=== PATIENT | female | born 1970 | race Caucasian/White ===

== ENCOUNTER → 2016-11-17 | Outpatient (CLI) | payer OTHER ==
[2016-11-17 15:16] LABS: BILIRUBIN,TOTAL 0.4 mg/dL (0.3-1.2); TOTAL PROTEIN 8.2 g/dL (6.1-8.0)
[2016-11-17 18:22] LABS: FREE T4 (FREE THYROXINE) 2.21 ng/dL (0.93-1.71)
[2016-11-18 04:58] LABS: FREE T3 6.89 PG/ML (2.77-5.27)
== END ==
LOC: LAB 14:41
PROVIDERS: ATTEND Nurse Practitioner Family
DX: R03.0 Elevated blood-pressure reading, without diagnosis of hypertension (principal); R00.0 Tachycardia, unspecified; R11.2 Nausea with vomiting, unspecified; Z86.39 Personal history of other endocrine, nutritional and metabolic disease
CPT/HCPCS: 36415; 80076; 84439; 84443; 84481

== ENCOUNTER → 2016-12-01 | Outpatient (CLI) | payer SELFPAY ==
[2016-12-01 14:09] LABS: BLOOD UREA NITROGEN 14 mg/dL (7-22); BUN/CREATININE RATIO 23.33 (6-20); CALCIUM 9.3 mg/dL (8.7-10.7); EST GLOMERULAR FILTRATION > 60 (>60 ml/min/1.73m(2)); SERUM ALBUMIN 4.2 g/dL (3.5-4.8)
== END ==
LOC: LAB 13:44
PROVIDERS: ATTEND Nurse Practitioner Family
DX: E05.90 Thyrotoxicosis, unspecified without thyrotoxic crisis or storm (principal)
CPT/HCPCS: 36415; 80053

== ENCOUNTER 2017-01-08 20:10 | Emergency (ER) | payer SELFPAY ==
[2017-01-08 20:16] VITALS: RESP 18; TEMP 96.9
[2017-01-08] MEDS ORDERED: NORMAL SALINE 10 ML SYRINGE FLUSH IVP PRN (20:31)
[2017-01-08] MEDS ORDERED: ONDANSETRON 4 MG/2 ML VIAL IVP ONE (20:31)
[2017-01-08] MEDS ORDERED: Sodium Chloride 0.9% 1,000 ML PRIMARY IV ONE (20:31)
[2017-01-08 20:49] LABS: BASOPHILS # (AUTO) 0.02 10*3/UL; BASOPHILS % (AUTO) 0.3 % (0-1); EOSINOPHILS % (AUTO) 1.3 % (0-8); HEMATOCRIT 42.1 % (37.0-47.0); HEMOGLOBIN 14.8 g/dL (12.0-16.0); MEAN CORPUSCULAR HEMOGLOBIN 29.5 PG (27-31); MEAN CORPUSCULAR HGB CONC 35.2 g/dL (33-37); MEAN PLATELET VOLUME 9.1 FL (7.4-12.2); MONOCYTES # (AUTO) 0.66 10*3/UL (0.3-0.8); MONOCYTES % (AUTO) 8.3 % (5-15); NEUTROPHILS # (AUTO) 4.71 10*3/UL; NEUTROPHILS % (AUTO) 58.7 % (50-80); RED BLOOD COUNT 5.01 10^6/uL (4.20-5.40)
[2017-01-08 20:50] LABS: PLATELET MORPHOLOGY COMMENT NORMAL MORPHOLOGY (NORM); RBC MORPHOLOGY COMMENT NORMAL MORPHOLOGY (NORM); WBC MORPHOLOGY COMMENT NORMAL MORPHOLOGY (NORM)
[2017-01-08 20:55] LABS: BLOOD UREA NITROGEN 15 mg/dL (7-22); CALCIUM 9.4 mg/dL (8.7-10.7); EST GLOMERULAR FILTRATION > 60 (>60 ml/min/1.73m(2)); MAGNESIUM 1.9 mg/dL (1.6-2.4); SERUM ALBUMIN 4.3 g/dL (3.5-4.8)
[2017-01-08 20:56] LABS: LIPASE 82 IU/L (23-300)
[2017-01-08] MEDS ORDERED: Prochlorperazine Edisylate Inj 10mg/2ml vial IVP ONE (21:02)
[2017-01-08 21:55] LABS: FREE T4 (FREE THYROXINE) 1.62 ng/dL (0.93-1.71)
--- NOTE | 2017-01-08 23:51 | PDOC ---
Nausea/Vomiting/Diarrhea HPI - General Chief Complaint: Nausea / Vomiting / Diarrhea Stated Complaint: VOMITING THE LAST 1.5 HOURS/RIGHT FLANK PAIN Date Seen by Provider: 01/08/17 Time Seen by Provider: 20:15 Source: POSITIVE: Patient Exam Limitations: POSITIVE: No limitations Nurse's Notes Reviewed & Considered: Yes - History of Present Illness Initial Comments: The patient is a 46-year-old female who is currently [facility] who presents to the emergency department with vomiting. She states that for the past year and a half to 2 years she has had intermittent episodes of nausea and vomiting. She had previous cholecystectomy over 10 years ago. She has been evaluated by the GI doctor in [place] and was told that her bile duct was slightly enlarged. She was scheduled to have an MRCP however this has not been completed currently. She states that she normally takes Phenergan as needed for nausea. Today she developed increased nausea and vomiting and has been unable to keep the Phenergan down. She denies any increase in pain, change in bowel movements, fevers or chills or any other associated symptoms. - Patient Home Medications Home Medications: Home Medications Methimazole 1.5 tab PO DAILY #135 tab 12/29/16 Metoprolol Tartrate 1 tab PO BID #180 tab 12/29/16 Omeprazole 1 cap PO DAILY #90 cap 12/29/16 Promethazine HCl 1 tab PO Q6H PRN #240 tab 12/29/16 - Patient Allergies Allergies/Adverse Reactions: Allergies Allergy/AdvReac Type Severity Reaction Status Date / Time clindamycin Allergy HIVES Verified 01/08/17 20:12 tramadol Allergy HIVES Verified 01/08/17 20:12 Past Medical History - heen HEENT History: Denies History Cardiovascular History: Hypertension Respiratory History: Asthma Gastrointestinal History: Gallbladder Disease, Other (please comment) Additional Gastrointestinal History: HEP C Genitourinary History: Denies History Endocrine History: Hyperthyroidism Musculoskeletal History: Other (please comment) Prosthesis or Implant: No Additional Musculoskeletal History: sprained ankle and knee few weeks ago DATE ? ? Neurological History: Frequent Headaches Blood Disorders: Denies History Psychiatric History: Depression History of Sexually Transmitted Diseases: No Female Reproductive History: Denies History Obstetrical History: Denies History Cancer History: Denies History In Past Year Been Physically Harmed or Verbally Threatened: No History of MDRO: Unknown History of Other Communicable Diseases: No Tobacco Use: Never Smoker Alcohol Use: None Substance Use Type: None Previous Surgical History: Yes Type / Date of Surgery: X3, OVARIAN CYST REMOVAL X4, CHOLECYSTECTOMY Anesthesia Reactions: No Malignant Hyperthermia: No Significant Family History: Diabetes, Seizures Past Medical History Reviewed: Reviewed - No Changes ROS - Limitations ROS Limitations: No Limitations Constitution: DENIES: Chills, Fever Cardiovascular: REPORTS: Denies Cardiac Symptoms Respiratory: REPORTS: Denies Resp Symptoms Neurological: REPORTS: Denies Neuro Symptoms Gastrointestinal: REPORTS: Abdominal Pain (Some epigastric cramping, denies pain currently), Nausea, Vomitting. DENIES: Black Stools, Bloody Stools Musculoskeletal: REPORTS: Denies MS Symptoms Genitourinary: REPORTS: Denies Symptoms Eyes: REPORTS: Denies Symptoms ENT: REPORTS: Denies Symptoms Skin: DENIES: Rash Nausea/Vomiting/Diarrhea Exam - General Appearance General Appearance: POSITIVE: Alert, Cooperative, No Acute Distress - HEENT HEENT: POSITIVE: Head Inspection Nml - Neck Neck: POSITIVE: Supple. NEGATIVE: Lymphadenopathy - Respiratory Respiratory: POSITIVE: No Respiratory Distress, Breath Sounds Normal - Cardiovascular Cardiovascular: POSITIVE: Regular Rate and Rhythm, Heart Sounds Normal Peripheral Pulses: Dorsalis-pedis (R): 2+, Dorsalis-pedis (L): 2+ - Abdomen Abdomen: Soft: (All Quadrants), Normal Bowel Sounds: (All Quadrants), No Guarding: (All Quadrants), No Rebound: (All Quadrants), No Distention: (All Quadrants) - Back Back: POSITIVE: Normal Inspection - Skin Skin: POSITIVE: Intact, No Rash N/V/D Progress - Results Reviewed by me Lab Results Reviewed: Yes Lab Results:: Laboratory Results 01/08/17 Range/Units 20:41 WBC 8.00 (4.8-10.8) 10^3/uL RBC 5.01 (4.20-5.40) 10^6/uL Hgb 14.8 (12.0-16.0) g/dL Hct 42.1 (37.0-47.0) % MCV 84.0 (81-99) FL MCH 29.5 (27-31) PG MCHC 35.2 (33-37) g/dL RDW Std Deviation 39.8 (39-50) fL RDW Coeff of Fatuma 13.1 (11.5-14.5) % Plt Count 305 (140-350) 10*3/uL MPV 9.1 (7.4-12.2) FL Immature Gran % (Auto) 0.1 (0-5) % Neut % (Auto) 58.7 (50-80) % Lymph % (Auto) 31.3 (10-50) % [place] % (Auto) 8.3 (5-15) % Eos % (Auto) 1.3 (0-8) % Baso % (Auto) 0.3 (0-1) % Immature Gran # (Auto) 0.01 10*3/UL Neut # (Auto) 4.71 10*3/UL Lymph # (Auto) 2.50 10*3/uL [place] # (Auto) 0.66 (0.3-0.8) 10*3/UL Eos # (Auto) 0.10 10*3/UL Baso # (Auto) 0.02 10*3/UL WBC Morphology Comment Normal morphology (NORM) Plt Morphology Comment Normal morphology (NORM) RBC Morph Comment Normal morphology (NORM) Sodium 137 (135-145) meq/L Potassium 4.0 (3.8-5.2) meq/L Chloride 100 (98-112) meq/L Carbon Dioxide 25 (23-33) meq/L Anion Gap 12 (5-20) BUN 15 (7-22) mg/dL Creatinine 0.6 (0.50-1.20) mg/dL Estimated GFR > 60 (>60 ml/min/1.73m(2)) BUN/Creatinine Ratio 25.00 H (6-20) Glucose 106 (78-110) mg/dL Calculated Osmolality 284.0 (267-292) mOsm/kg Calcium 9.4 (8.7-10.7) mg/dL Magnesium 1.9 (1.6-2.4) mg/dL Total Bilirubin 0.5 (0.3-1.2) mg/dL AST 42 H (8-39) IU/L ALT 51 (9-52) IU/L Alkaline Phosphatase 108 (38-126) IU/L Total Protein 8.3 H (6.1-8.0) g/dL Albumin 4.3 (3.5-4.8) g/dL Globulin 4.0 (2.50-4.10) g/dL Albumin/Globulin Ratio 1.00 L (1.3-2.0) mg/g Amylase 82 (30-110) U/L Lipase 82 (23-300) IU/L TSH < 0.015 L (0.2700-4.2000) uIU/mL Free T4 1.62 (0.93-1.71) ng/dL - Patient's Progress MDM / ED Course: An IV was established and the patient did receive Zofran 4 mg IV as well as a 1 L bolus of normal saline. She also received Protonix 40 mg IV. Zofran did not really seem to help significantly for her nausea. She states that she generally has not had good success with Zofran. She subsequently received Compazine 5 mg IV. Her nausea improved significantly. Her lab work is essentially unremarkable with a normal white count, normal pancreas enzymes and only one mildly elevated transaminase. These findings were discussed with the patient. She has a history of chronic intermittent nausea and vomiting. At this point we'll continue Phenergan as needed and return to the emergency room if increased vomiting or dehydration, increased pain, fever, any worsening or change in symptoms. - Consult Counseled: POSITIVE: Patient, RE: Lab Results, RE: DX, RE: Need for F/U Patient Care Time - Estimated PCT Patient Care Time (In Minutes): 25 Vital Signs - Recent Vital Signs Vital Signs: Vital Signs (Last 8 hours) Temp Pulse Resp BP Pulse Ox 01/08/17 20:10 96.9 F 79 18 140/98 94 - VS Reviewed Vital Signs Reviewed: Yes Discharge Clinical Impression: Dehydration, Nausea & vomiting Discharge Disposition: Discharged to Home Condition: Stable Patient Instructions Given at Discharge: Dehydration (ED), Acute Nausea and Vomiting (ED) Additional Instructions: Your blood work here revealed no evidence of infection. Your pancreas enzymes were normal and your liver enzymes were essentially normal except for 1 at was slightly elevated. Recommend continuation of Phenergan 25 mg every 6 hours as needed for nausea or vomiting. Return to the emergency room if any worsening or change in symptoms. Your thyroid level still appear to be high however this is not surprising and I don't think that is causing her current problem. Return to the emergency room if increased vomiting or dehydration, increased pain, fever or chills, any worsening or change in symptoms. Recommend follow- up with primary care in 3-5 days. Follow Up With: KEYON CHAO [Primary Care Provider] -
== END 2017-01-08 21:42 | disposition home or self-care (01) ==
LOC: ER 20:10
DX: E86.0 Dehydration (principal); R11.2 Nausea with vomiting, unspecified
CPT/HCPCS: 80053; 82150; 83690; 83735; 84439; 84443; 85025; 96361; 96374; 96375; 99282; 99283; J0780; J2405; J7030

== ENCOUNTER → 2017-01-11 | Outpatient (CLI) | payer OTHER ==
--- NOTE | 2017-01-11 09:37 | DI ---
MRI ABDOMEN W/WO DANIE,01/11/2017 7:56 AM: Clinical History: Nausea, vomiting and right upper quadrant pain. Previous Exam: None at this facility. Findings: Multiplanar MR images are obtained through the abdomen following MRCP protocol as well as routine abd omen both pre-and post contrast. The common bile duct is normal. The left and right hepatic ducts are normal. The pancreatic duct is also normal. The kidneys, adrenals and spleen are unremarkable. Postcontrast images demonstrate normal enhancement of the liver, kidneys and spleen. Impression: 1. Normal MRCP. 2. No intra-abdominal pathology.
== END ==
LOC: MRI 07:51
PROVIDERS: ATTEND Registered Nurse
DX: R11.2 Nausea with vomiting, unspecified (principal); R10.11 Right upper quadrant pain
CPT/HCPCS: 74183

== ENCOUNTER → 2017-01-24 | Outpatient (CLI) | payer SELFPAY ==
[2017-01-24 12:45] LABS: HEMATOCRIT 45.1 % (37.0-47.0); HEMOGLOBIN 15.4 g/dL (12.0-16.0); MEAN CORPUSCULAR HEMOGLOBIN 29.4 PG (27-31); MEAN CORPUSCULAR HGB CONC 34.1 g/dL (33-37); MEAN CORPUSCULAR VOLUME 86.2 FL (81-99); MEAN PLATELET VOLUME 8.5 FL (7.4-12.2); RED BLOOD COUNT 5.23 10^6/uL (4.20-5.40)
[2017-01-24 21:53] LABS: BLOOD UREA NITROGEN 13 mg/dL (7-22); BUN/CREATININE RATIO 21.66 (6-20); CALCIUM 9.7 mg/dL (8.7-10.7); EST GLOMERULAR FILTRATION > 60 (>60 ml/min/1.73m(2))
[2017-01-24 21:54] LABS: SERUM ALBUMIN 4.1 g/dL (3.5-4.8)
[2017-01-25 14:42] LABS: FREE T4 (FREE THYROXINE) 1.59 ng/dL (0.93-1.71)
== END ==
LOC: LAB 12:24
PROVIDERS: ATTEND Student in an Organized Health Care Education/Training Program
DX: E05.00 Thyrotoxicosis with diffuse goiter without thyrotoxic crisis or storm (principal)
CPT/HCPCS: 36415; 80053; 84439; 84443; 85027

== ENCOUNTER → 2017-02-14 | Outpatient (CLI) | payer SELFPAY ==
[2017-02-14 09:11] LABS: FREE T4 (FREE THYROXINE) 1.38 ng/dL (0.93-1.71)
[2017-02-14 17:33] LABS: HEMOGLOBIN 14.4 g/dL (12.0-16.0); MEAN CORPUSCULAR HGB CONC 33.5 g/dL (33-37); MEAN CORPUSCULAR VOLUME 86.7 FL (81-99); MEAN PLATELET VOLUME 9.3 FL (7.4-12.2); RED BLOOD COUNT 4.96 10^6/uL (4.20-5.40)
[2017-02-14 17:52] LABS: BLOOD UREA NITROGEN 11 mg/dL (7-22); BUN/CREATININE RATIO 15.71 (6-20); CALCIUM 9.3 mg/dL (8.7-10.7); EST GLOMERULAR FILTRATION > 60 (>60 ml/min/1.73m(2)); LIPASE 119 IU/L (23-300); SERUM ALBUMIN 4.2 g/dL (3.5-4.8)
== END ==
LOC: MOB LAB 08:00 → LAB 08:00
PROVIDERS: ATTEND Student in an Organized Health Care Education/Training Program
DX: R10.11 Right upper quadrant pain (principal); I10 Essential (primary) hypertension; R94.5 Abnormal results of liver function studies
CPT/HCPCS: 36415; 80053; 82150; 83690; 84439; 84443; 85027; 86803

== ENCOUNTER → 2017-03-30 | Outpatient (CLI) | payer SELFPAY ==
[2017-03-30 14:46] LABS: FREE T4 (FREE THYROXINE) 0.98 ng/dL (0.93-1.71)
== END ==
LOC: LAB 13:57
PROVIDERS: ATTEND Student in an Organized Health Care Education/Training Program
DX: E05.00 Thyrotoxicosis with diffuse goiter without thyrotoxic crisis or storm (principal)
CPT/HCPCS: 36415; 84439; 84443

== ENCOUNTER → 2017-04-26 | Outpatient (CLI) | payer OTHER ==
[2017-04-26 16:37] LABS: FREE T4 (FREE THYROXINE) 0.89 ng/dL (0.93-1.71)
== END ==
LOC: LAB 15:35
PROVIDERS: ATTEND Student in an Organized Health Care Education/Training Program
DX: E05.00 Thyrotoxicosis with diffuse goiter without thyrotoxic crisis or storm (principal)
CPT/HCPCS: 36415; 84439; 84443